=== PATIENT | female | born 1975 | race Caucasian/White ===

== ENCOUNTER 2023-10-24 08:00 | Emergency (ER) | payer OTHER, SELFPAY ==
[2023-10-24] VITALS (8 sets, daily range): BP systolic 113–166; BP diastolic 67–84; BMI 23.4
--- NOTE | 2023-10-24 09:24 | ED.GENMED ---
History of Present Illness
General
Chief Complaint: Chest Pain
Source: patient and spouse
Time Seen by Provider: 10/24/23 09:00
Travel History
Have you had any contact with someone who has COVID-19?: No
Do you have any symptoms of coronavirus? Fever > 100 degrees, chills, cough, shortness of breath, sore throat, loss of taste or smell, muscle aches, or headache?: No
History of Present Illness
History of Present Illness:
This patient is a 48-year-old female presents emergency department with complaints of chest discomfort that started in the middle the night last night. She describes the pain as 'stabbing' in the lower sternal area without radiation, exacerbating,
relieving factors. She also notes a 'on and off' 'grabbing' sensation of her left upper extremity. She states the pain in her chest and arm comes and goes. She denies associated diaphoresis, dyspnea, leg swelling, estrogen use, abdominal pain,
back pain, headache, dizziness, neck pain. The pain is not pleuritic in nature. Patient has a history of aortic stenosis related to a bicuspid aortic valve and states that she regularly gets chest pain that feels like a 'weight'. This is
different in regards to the quality of the pain
Past History
Past History
ED Past Medical History: Other (Bicuspid aortic valve, migraines)
ED Past Surgical History: Other (Skin cancer removal, lipoma removal)
Social History
Tobacco: Non-smoker
Alcohol: Occasional
Personal:
Living: with family
Phy Exam
Physical Exam
Physical Exam:
GENERAL: Alert , in no apparent distress
EYE: pupils equal and reactive
NECK: Supple, no significant adenopathy.
ENT: o/p clr, mmm.
CARDIAC: Regular rate and rhythm .
LUNGS: Clear breath sounds bilaterally, no acute respiratory distress, no wheezes/rales/rhonchi
ABDOMEN: Soft, without focal tenderness, no r/g, no cvat
NEUROLOGICAL: Alert and oriented, no focal neuro deficits
SKIN: Warm and dry, skin intact.
MUSCULOSKELETAL: No edema, well perfused.
PSYCH: Normal and appropriate interaction.
Scores
Heart Score for Chest Pain Patients
STEMI patient?: Not applicable
Course
Orders/Labs/Results
Orders:
Orders
10/24/23 08:05
ECG [Electrocardiogram (*1)] Urgent
Reason for Study: Chest Pain
EKG- Treatment ONCE
10/24/23 09:23
Pulse Ox/cont/shift [RESP] Stat
Quantity: 1
US Abdomen Complete/Upper Urgent
Comment:
Reason For Exam: lower chest pain
10/24/23 09:24
Cardiac Monitoring- Treatment ONCE
CR Chest - 2 Views Urgent
Comment:
Reason For Exam: cp
10/24/23 09:42
Complete Blood Count/No Diff Urgent
Comprehensive Metabolic Panel Urgent
Troponin I Urgent
10/24/23 13:05
Troponin I Urgent
Abnormal Lab Results
10/24/23
09:42
Chloride 108 H mmol/L
(98-107)
Glucose 109 H mg/dl
(70-99)
10/24/23 09:42
10/24/23 09:42
Vital Signs
Initial and Last Documented VS:
Initial Vital Signs
Temp Pulse BP Pulse Ox
98.3 F 55 166/80 100
10/24/23 08:23 10/24/23 08:23 10/24/23 08:23 10/24/23 08:23
Last Documented Vital Signs
Temp Pulse Resp BP Pulse Ox
98.3 F 58 12 114/78 100
10/24/23 08:23 10/24/23 14:31 10/24/23 12:15 10/24/23 14:10/24/23 12:00
*Critical Care Note
Total Time (30-74mins, 75-104mins- exclusive of procedures): Not Applicable
Update Note
Update Note:
Patient presents to the Emergency Department with chest pain
Number and Complexity of Problems Addressed at the Encounter
� Chronic conditions affecting care:
� Acute Exacerbation and/or Progression of Chronic Illness:
� Differential Diagnosis includes: But not limited to ACS, severe AAS, pericarditis, gallbladder disease, etc. etc.
Amount and/or Complexity of Data to be Reviewed and Analyzed
� I performed an independent evaluation of and my interpretation is:
EKG: Read by me, sinus bradycardia, no acute ischemia
CT:
Xrays:
Laboratory Studies: Unremarkable
Other:
� Review of other/old records reveals: Patient had an echocardiogram in December 2022 that showed 'mild' aortic stenosis, exercise stress normal January 2023
� Clinical information was obtained by an independent historian:
� Prescriptions/Medications Considered but not given:
� Further testing considered but not performed:
Risk of Complications and/or Morbidity or Mortality of Patient Management
� Social determinants of health affecting care:
� Discussion with other providers (PCP, Hospitalists, Consultants, etc):
� Escalation of care including admission/observation vs risk of discharge considered: Patient remains comfortable here. Long discussion with patient, do not find serious etiology for her pain at this time, highly doubt ACS, PE,
dissection, pericarditis, etc. Given copy of ultrasound report and pointed out tiny renal cyst noted. Case discussed with Dr. Marquez from cardiology, he will see patient close follow-up with preparations for outpatient echocardiogram to reassess
aortic valve.
ED Attending Note
-
Portions of this chart may have been created with voice recognition software.� Occasional wrong word or��sound alike� substitutions may have occurred due to the inherent limitations of voice recognition software.
Discharge Plan
Departure
Patient Disposition: Home (Routine Discharge)
Date of Disposition: 10/24/23
Time of Disposition: 13:56
Patient with high blood pressure during this ER visit?: Yes
Condition: Good
Discharge Problem:
Chest pain
Instructions: Chest Pain CBC Follow Up, BLOOD PRESSURE
Prescriptions:
No Action
valacyclovir 500 MG tablet
1,000 mg PO BID
levonorgestrel [Mirena] 1 EACH intrauterine device
1 ea IY DIRECTED
Patient Comments:
brith control
Referrals:
Almaz Rob CRNP [Family Provider] -
Stand Alone Forms: Return to Work
Activity Restrictions/Additional Instructions:
PLEASE CONTACT YOUR ENGINE SPECIALIST THIS WEEK TO ARRANGE FOR CLOSE OUTPATIENT FOLLOW UP AND ECHO. IF YOU DEVELOP INCREASING/NEW/PERSISTENT PAIN, FEVER, VOMITING, TROUBLE BREATHING, DIZZINESS, OR OTHER WORRISOME SIGNS, GO TO THE ER IMMEDIATELY!
Interventions
Interventions:
*Risk Screen - Suicide Last Done: 10/24/23 09:28
*General Assessment Last Done: 10/24/23 09:28
*Neglect/Abuse Screening Last Done: 10/24/23 09:28
ED- Fall Risk Assessment Last Done: 10/24/23 09:28
*ED COVID-19 Vaccine History Last Done: 10/24/23 08:32
*Nursing Disposition Last Done: 10/24/23 14:31
ED- Cardiac Assessment Last Done: 10/24/23 09:28
Discharge Date and Time
Discharge Date/Time: 10/24/23 14:31
Print Language: HEBREW
[2023-10-24 09:58] LABS: Hematocrit 40.3 % (37.0-47.0); Hemoglobin 13.6 g/dL (12.0-16.0); Mean Corp Hgb Conc. 33.7 g/dL (33.0-37.0); Mean Corpuscular Hgb 30.2 pg (27.0-31.0); Mean Corpuscular Volume 89.6 fL (81.0-99.0); Mean Platelet Volume 10.4 fL (7.4-10.4); Platelet Count 249 10^3/uL (130-400); Red Cell Dist. Width 12.7 % (11.5-14.5); White Blood Cell Count 9.7 10^3/uL (4.8-10.8)
[2023-10-24 10:09] LABS: ALT (SGPT) 15 U/L (0-35); AST (SGOT) 28 U/L (14-36); Albumin 4.5 g/dl (3.5-5.0); Alkaline Phosphatase 50 U/L (38-126); Blood Urea Nitrogen 10 mg/dl (7-17); Calcium 9.4 mg/dl (8.4-10.2); Carbon Dioxide 27 mmol/L (22-30); Chloride 108 mmol/L (98-107); Estimated Creatinine Clearance 97 ml/min; Glucose 109 mg/dl (70-99); Potassium 4.4 mmol/L (3.5-5.1); Sodium 137 mmol/L (135-145); Total Bilirubin 0.9 mg/dl (0.2-1.3); eGFR > 60.00
[2023-10-24 11:05] LABS: Troponin I 0.013 ng/ml
[2023-10-24 13:38] LABS: Troponin I < 0.012 ng/ml
== END 2023-10-24 14:31 | disposition home or self-care (01) ==
LOC: EMR 08:00
PROVIDERS: EMERGENCY PHYSICIAN Emergency Medicine; FAMILY PHYSICIAN Nurse Practitioner
DX: R07.89 Other chest pain (principal); R03.0 Elevated blood-pressure reading, without diagnosis of hypertension
CPT/HCPCS: 99285; 71046; 76700; 80053; 84484; 85027; 93005

== ENCOUNTER → 2024-02-24 07:23 | Outpatient (REF) | payer OTHER, SELFPAY | LOC: HWRCS 07:23 | PROVIDERS: ATTENDING PHYSICIAN Nurse Practitioner Gerontology; FAMILY PHYSICIAN Nurse Practitioner | DX: R07.9 Chest pain, unspecified (principal); Q23.1 Congenital insufficiency of aortic valve; I35.0 Nonrheumatic aortic (valve) stenosis; I35.1 Nonrheumatic aortic (valve) insufficiency | CPT/HCPCS: 93306 ==

== ENCOUNTER → 2024-03-22 14:26 | Outpatient (REF) | payer OTHER, SELFPAY | LOC: RCS 14:26 | PROVIDERS: ATTENDING PHYSICIAN Nurse Practitioner Gerontology; FAMILY PHYSICIAN Nurse Practitioner | DX: R07.9 Chest pain, unspecified (principal); Q23.1 Congenital insufficiency of aortic valve; I35.0 Nonrheumatic aortic (valve) stenosis; I35.1 Nonrheumatic aortic (valve) insufficiency | CPT/HCPCS: 93017; 93350 ==

== ENCOUNTER → 2024-04-12 14:34 | Outpatient (REF) | payer OTHER, SELFPAY | LOC: PAVMRI 14:34 | PROVIDERS: ATTENDING PHYSICIAN Internal Medicine Cardiovascular Disease | DX: R07.89 Other chest pain (principal); Q23.1 Congenital insufficiency of aortic valve; R93.89 Abnormal findings on diagnostic imaging of other specified body structures; I35.0 Nonrheumatic aortic (valve) stenosis; I35.1 Nonrheumatic aortic (valve) insufficiency | CPT/HCPCS: 71555; A9585 ==